=== PATIENT | male | born 2000 | race Caucasian/White ===

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

== ENCOUNTER 2018-08-08 11:02 | Emergency (ER) | payer OTHER ==
[~2018-08-08] VITALS: Ht 172.7 cm; Wt 59.1 kg
[2018-08-08 11:07] VITALS: Ht 172.7 cm; Wt 59.1 kg
[2018-08-08 14:12] VITALS: BP 146/80
== END 2018-08-08 14:12 | disposition home or self-care (01) ==
LOC: ED 11:02
DX: J06.9 Acute upper respiratory infection, unspecified (principal); R11.10 Vomiting, unspecified; G47.00 Insomnia, unspecified; F12.20 Cannabis dependence, uncomplicated

== ENCOUNTER 2019-05-05 12:51 | Emergency (ER) | payer OTHER ==
[~2019-05-05] VITALS: Ht 175.3 cm; Wt 60.3 kg
[2019-05-05 13:35] VITALS: BP 132/62; Ht 175.3 cm; Wt 60.3 kg
== END 2019-05-05 16:36 | disposition home or self-care (01) ==
LOC: ED 12:51
DX: J03.90 Acute tonsillitis, unspecified (principal)
CPT/HCPCS: J0696; J1100

== ENCOUNTER 2019-12-31 04:35 | Emergency (ER) | payer OTHER ==
[~2019-12-31] VITALS: Ht 175.3 cm; Wt 61.2 kg
[2019-12-31 04:38] VITALS: Ht 175.3 cm; Wt 61.2 kg
[2019-12-31 06:04] VITALS: BP 117/84
== END 2019-12-31 06:04 | disposition home or self-care (01) ==
LOC: ED 04:35
DX: K29.70 Gastritis, unspecified, without bleeding (principal)
CPT/HCPCS: Q0162